=== PATIENT | male | born 1965 | race Caucasian/White ===

== ENCOUNTER 2017-04-04 19:06 | Emergency (ER) | payer SELFPAY ==
--- NOTE | 2017-04-04 19:32 | C.PDOC ---
History Of Present Illness Patient presents to the ER after falling and hitting his face. Patient reports a questionable LOC and admits to ETOH use today. Denies nausea, vomiting, fever or chills. - HPI Time Seen by Provider: 04/04/17 19:32 Chief Complaint (Nursing): Trauma History Per: Patient History/Exam Limitations: no limitations Onset/Duration Of Symptoms: Hrs Injury Occurred (Timing): Just Before Arrival Location Of Injury: Anterior: Face Severity: Mild Pain Scale Rating Of: 2 Associated Symptoms: LOC (Questionable) Recent travel outside of the [place]: No Past Medical History Reviewed: Historical Data, Nursing Documentation, Vital Signs Vital Signs: Last Vital Signs Temp 98.1 F 04/04/17 19:23 Pulse 86 04/04/17 19:23 Resp 17 04/04/17 19:23 BP 163/96 H 04/04/17 19:23 Pulse Ox 99 04/05/17 02:31 - Medical History PMH: No Chronic Diseases Surgical History: No Surg Hx Family History: States: No Known Family Hx - Social History Hx Alcohol Use: Yes Hx Substance Use: No - Immunization History Hx Tetanus Toxoid Vaccination: No Hx Influenza Vaccination: No Hx Pneumococcal Vaccination: No Review Of Systems Constitutional: Negative for: Fever, Chills Gastrointestinal: Negative for: Nausea, Vomiting Physical Exam - Physical Exam Appears: Non-toxic, Other (ETOH on breath) Skin: Warm, Dry Head: No Atraumatic, Abrasion (Over bridge of nose, no crepitus felt) Ear(s): Bilateral: Normal Nose: Normal, No Septal Hematoma Oral Mucosa: Moist Throat: Normal, No Erythema, No Exudate, No Drooling, No Mass Chest: Symmetrical, No Tenderness Cardiovascular: Rhythm Regular, No Murmur Respiratory: No Rales, No Rhonchi, No Wheezing Gastrointestinal/Abdominal: Soft, No Tenderness Neurological/Psych: Oriented x3, Other (No focal deficits) ED Course And Treatment O2 Sat by Pulse Oximetry: 99 (Room air) Pulse Ox Interpretation: Normal - CT Scan/US Head CT w/o contrast Other Rad Studies (CT/US): Read By Radiologist, Radiology Report Reviewed CT/US Interpretation: IMPRESSION: No acute intracranial pathology or traumatic injury. CT of facials and orbits w/o contrast Other Rad Studies (CT/US): Read By Radiologist, Radiology Report Reviewed CT/US Interpretation: IMPRESSION: Acute depressed bilateral nasal bone fractures with overlying paranasal subcutaneous soft tissue. swelling and stranding. Thank you for allowing us to participate in the care of your patient. Progress Note: CT of head, orbits, and facials w/o contrast ordered. ED OBSERVATION Discharge: Yes Disposition Counseled Patient/Family Regarding: Studies Performed, Diagnosis, Need For Followup - Disposition Referrals: [facility] [Outside] Disposition: HOME/ ROUTINE Disposition Time: 20:00 Condition: FAIR Instructions: Alcohol Intoxication (DC), Nasal Fracture (ED) - POA Core Measure Indicators: Code Heart (fracture nose) - Clinical Impression Clinical Impression: Alcohol intoxication, Fractured nasal bones - Scribe Statement The provider has reviewed the documentation as recorded by the Scribpeter Johansen All medical record entries made by the Scribe were at my direction and personally dictated by me. I have reviewed the chart and agree that the record accurately reflects my personal performance of the history, physical exam, medical decision making, and the department course for this patient. I have also personally directed, reviewed, and agree with the discharge instructions and disposition.
[2017-04-05 06:36] VITALS: BP 132/80; PULSE 82; RESP 20; TEMP 98; O2SAT 98
--- NOTE | 2017-04-05 07:05 | CT ---
PROCEDURE: CT HEAD WITHOUT CONTRAST. HISTORY: fall COMPARISON: None available. TECHNIQUE: Axial computed tomography images were obtained through the head/brain without intravenous contrast. Radiation dose: Total exam DLP = eight hundred forty-six mGy-cm. This CT exam was performed using one or more of the following dose reduction techniques: Automated exposure control, adjustment of the mA and/or kV according to patient size, and/or use of iterative reconstruction technique. FINDINGS: HEMORRHAGE: No intracranial hemorrhage. BRAIN: No mass effect or edema. Scattered focal lucencies in the subcortical and periventricular white matter suggestive for chronic microvascular ischemic change. Diffuse cerebral volume loss and chronic microvascular white matter disease. Small lacunar infarct in the left thalamus. Diffuse cerebellar volume loss. VENTRICLES: Unremarkable. No hydrocephalus. CALVARIUM: Unremarkable. PARANASAL SINUSES: Mucosal thickening of the paranasal sinuses. MASTOID AIR CELLS: Unremarkable as visualized. No inflammatory changes. OTHER FINDINGS: None. IMPRESSION: No acute intracranial abnormality. Chronic microvascular ischemic changes. Cerebral and cerebellar atrophy. Lacunar infarct in the left thalamus. If focal neurologic deficit persists, consider MRI. These findings were preliminarily reported at 8:43 p.m. on 04/04/[address] Ruslan Toribio from [employer]
--- NOTE | 2017-04-05 07:11 | CT ---
CT orbits History: Injury. Fall. Comparison: None available. Technique: Axial computed tomographic images of the orbits were performed without intravenous contrast. Subsequently, sagittal and coronal reformatted images were obtained. This CT exam was performed using one or more of the following dose reduction techniques: Automated exposure control, adjustment of the mA and/or kV according to patient size, and/or use of iterative reconstruction technique. Findings: Visualized orbits are preserved. Extensive paranasal sinus mucosal changes involving the maxillary sinuses; right greater than left. Acute depressed fractures of the nasal bones with overlying paranasal soft tissue swelling and stranding. A few dental caries are noted. Impression: Acute depressed bilateral nasal bone fractures with overlying paranasal subcutaneous soft tissue swelling and stranding. Additional findings as above. These findings were preliminarily reported by Dr. Ruslan Toribio from [facility] at 8:48 p.m. on 04/04/2017.
== END 2017-04-05 06:35 | disposition home or self-care (01) ==
LOC: C.ER 19:06 → SUPCPDRO 19:06 → C.ER 04-05 06:35
DX: S02.2XXA Fracture of nasal bones, initial encounter for closed fracture (principal); W19.XXXA Unspecified fall, initial encounter; Y93.9 Activity, unspecified; Y92.410 Unspecified street and highway as the place of occurrence of the external cause; F10.120 Alcohol abuse with intoxication, uncomplicated; Y90.9 Presence of alcohol in blood, level not specified

== ENCOUNTER 2017-08-23 20:39 | Emergency (ER) | payer SELFPAY ==
[2017-08-23 20:54] VITALS: BP 145/85; PULSE 69; RESP 16; TEMP 97.8; O2SAT 95
--- NOTE | 2017-08-23 20:55 | C.PDOC ---
History Of Present Illness 52 y/o male was brought into EMS after being found intoxicated in public. Patient denies any complaints at this time. Patient has been seen in multiple hospitals for similar complaints. Time Seen by Provider: 08/23/17 20:40 Chief Complaint (Nursing): Substance Abuse History Per: Patient History/Exam Limitations: no limitations Onset/Duration Of Symptoms: Hrs Current Symptoms Are (Timing): Still Present Suicide/Self Injury Attempted (Context): None Modifying Factor(s): Alcohol Associated Symptoms: denies: Depression, Suicidal Thoughts, Suicidal Plan Involuntary Hold By: None Recent travel outside of the [place]: No Past Medical History Reviewed: Historical Data, Nursing Documentation, Vital Signs Vital Signs: Last Vital Signs Temp 97.8 F 08/23/17 20:45 Pulse 69 08/23/17 20:45 Resp 16 08/23/17 20:45 BP 145/85 08/23/17 20:45 Pulse Ox 95 08/23/17 20:55 - Medical History PMH: No Chronic Diseases Surgical History: No Surg Hx Family History: States: Unknown Family Hx - Social History Hx Alcohol Use: Yes Hx Substance Use: No - Immunization History Hx Tetanus Toxoid Vaccination: No Hx Influenza Vaccination: No Hx Pneumococcal Vaccination: No Review Of Systems Constitutional: Negative for: Fever, Chills Gastrointestinal: Negative for: Nausea, Vomiting, Diarrhea Physical Exam - Physical Exam Appears: Non-toxic, No Acute Distress, Other (ETOH on breath) Skin: Normal Color, Warm, Dry Head: Atraumatic, Normacephalic Oral Mucosa: Moist Cardiovascular: Rhythm Regular Respiratory: Normal Breath Sounds Gastrointestinal/Abdominal: Soft, No Tenderness Neurological/Psych: Oriented x3, Normal Speech, Normal Cognition Gait: Steady ED Course And Treatment O2 Sat by Pulse Oximetry: 95 (room air) Medical Decision Making Medical Decision Making: homeless alcoholic, stable gait malingering stafe to d/c to street. Disposition Doctor Will See Patient In The: Office Counseled Patient/Family Regarding: Studies Performed, Diagnosis - Disposition Referrals: Alcoholics Anonymous [Outside] [facility] [Outside] [facility] [Outside] [facility] [Outside] Disposition: HOME/ ROUTINE Disposition Time: 20:55 Condition: GOOD Additional Instructions: seek nightly intermediate placement and/or substance abuse programs. Instructions: Abuse of Alcohol (ED) Forms: [facility] (Serbian) - Clinical Impression Clinical Impression: Alcohol abuse, Homeless - Scribe Statement The provider has reviewed the documentation as recorded by the Scribe Juan Carlos Mena All medical record entries made by the Mikeibe were at my direction and personally dictated by me. I have reviewed the chart and agree that the record accurately reflects my personal performance of the history, physical exam, medical decision making, and the department course for this patient. I have also personally directed, reviewed, and agree with the discharge instructions and disposition.
== END 2017-08-23 21:15 | disposition home or self-care (01) ==
LOC: C.ER 20:39
DX: F10.10 Alcohol abuse, uncomplicated (principal); Y90.9 Presence of alcohol in blood, level not specified; Z59.0 Homelessness

== ENCOUNTER 2019-03-08 14:44 | Emergency (ER) | payer SELFPAY ==
[2019-03-08 14:58] VITALS: BP 128/71; PULSE 78; RESP 20; TEMP 97.9; O2SAT 96
--- NOTE | 2019-03-08 15:35 | C.PDOC ---
History Of Present Illness Patient is a 53 year old male jonathan, who presents to the ED for public intoxication. He admits to drinking a pint of vodka before work and states in the ED that "he wants to leave to go to work". He denies any CP, SOB, SI/HI, or hallucinations. Time Seen by Provider: 03/08/19 15:09 Chief Complaint (Nursing): Substance Abuse History Per: Patient, EMS History/Exam Limitations: no limitations Onset/Duration Of Symptoms: Hrs Modifying Factor(s): Alcohol Associated Symptoms: denies: Suicidal Thoughts, Suicidal Plan Recent travel outside of the [place]: No Additional History Per: Patient, EMS Past Medical History Reviewed: Historical Data, Nursing Documentation, Vital Signs Vital Signs: Last Vital Signs Temp 97.9 F 03/08/19 14:57 Pulse 78 03/08/19 14:57 Resp 20 03/08/19 14:57 BP 128/71 03/08/19 14:57 Pulse Ox 96 03/08/19 14:57 - Medical History PMH: No Chronic Diseases Denies: Diabetes, Hepatitis, HIV, HTN, Seizures, Sexually Transmitted Disease Surgical History: No Surg Hx Family History: States: Unknown Family Hx - Social History Hx Alcohol Use: Yes Hx Substance Use: No - Immunization History Hx Tetanus Toxoid Vaccination: No Hx Influenza Vaccination: No Hx Pneumococcal Vaccination: No Review Of Systems Cardiovascular: Negative for: Chest Pain Respiratory: Negative for: Shortness of Breath Psych: Negative for: Suicidal ideation, Other (HI or hallucinations) Physical Exam - Physical Exam Appears: Non-toxic, No Acute Distress, Other (black male, doesn't appear intoxicated) Skin: Normal Color, Warm, Dry Head: Atraumatic, Normacephalic Oral Mucosa: Moist Neck: Normal ROM, Supple Chest: Symmetrical, No Deformity Cardiovascular: Rhythm Regular Respiratory: Normal Breath Sounds, No Rhonchi, No Wheezing Gastrointestinal/Abdominal: Soft, No Tenderness Neurological/Psych: Oriented x3, Normal Speech Gait: Steady ED Course And Treatment O2 Sat by Pulse Oximetry: 96 (on RA) Pulse Ox Interpretation: Normal Medical Decision Making Medical Decision Making: stable gait daily alcohol abuse Disposition Doctor Will See Patient In The: Office Counseled Patient/Family Regarding: Studies Performed, Diagnosis - Disposition Referrals: Alcoholics Anonymous [Outside] [facility] [Outside] [facility] [Outside] [facility] [Outside] Disposition: HOME/ ROUTINE Disposition Time: 15:35 Condition: GOOD Additional Instructions: avoid alcohol abuse seek AA or substance abuse programs as needed. Instructions: Alcohol Use - When Is Drinking a Problem? Forms: [facility] (Citizen Of [place]) - Clinical Impression Clinical Impression: Alcohol abuse - Scribe Statement The provider has reviewed the documentation as recorded by the Mikeibpeter Velazquez All medical record entries made by the Scribe were at my direction and personally dictated by me. I have reviewed the chart and agree that the record accurately reflects my personal performance of the history, physical exam, medical decision making, and the department course for this patient. I have also personally directed, reviewed, and agree with the discharge instructions and disposition.
== END 2019-03-08 15:53 | disposition home or self-care (01) ==
LOC: C.ER 14:44
DX: F10.10 Alcohol abuse, uncomplicated (principal)